=== PATIENT | male | born 1955 | race American Indian/Alaskan Native ===

== ENCOUNTER 2018-01-01 04:09 | Emergency (ER) | payer OTHER ==
[2018-01-01 05:53] LABS: Basophils # (Auto) 0.1 K/mm3 (0.0-0.1); Basophils % (Auto) 0.7 % (0.0-1.8); Eosinophils # (Auto) 0.2 K/mm3 (0.0-0.4); Eosinophils % (Auto) 1.7 % (0.0-4.3); Hematocrit 40.8 % (35.5-45.6); Hemoglobin 13.9 gm/dl (11.8-15.2); Lymphocytes # (Auto) 1.9 K/mm3 (1.2-5.4); Lymphocytes % (Auto) 19.8 % (13.4-35.0); Mean Corpuscular HGB Conc 34 % (32-34); Mean Corpuscular Hemoglobin 29 pg (28-32); Mean Corpuscular Volume 86 fl (84-94); Monocytes # (Auto) 0.8 K/mm3 (0.0-0.8); Monocytes % (Auto) 8.2 % (0.0-7.3); Red Blood Count 4.76 M/mm3 (3.65-5.03); Red Cell Distribution Width 13.2 % (13.2-15.2)
[2018-01-01 06:10] LABS: Platelet Count 140 K/mm3 (140-440)
[2018-01-01 06:12] LABS: Alanine Aminotransferase 9 units/L (7-56); Albumin 4.2 g/dL (3.9-5); BUN/Creatinine Ratio 20; Blood Urea Nitrogen 16 mg/dL (9-20); Calcium 9.1 mg/dL (8.4-10.2); Hemolysis Index 28
[2018-01-01 06:50] LABS: Bilirubin,Urine NEG (Negative); Blood,Urine NEG (Negative); Color,Urine Yellow (Yellow); Mucus,Urine FEW /HPF; Protein,Urine <15 mg/dL mg/dL (Negative); WBC,Urine < 1.0 /HPF (0.0-6.0)
[2018-01-01] MEDS ORDERED: MORPHINE IV ONE (07:47)
[2018-01-01] MEDS ORDERED: ZOFRAN IV ONE (07:47)
--- NOTE | 2018-01-01 12:01 | Cat Scan Report ---
CT ABDOMEN PELVIS WITH CONTRAST: HISTORY: Abdominal pain, previous surgery. COMPARISON: No relevant comparison. TECHNIQUE: Helical CT in 1.25mm intervals following IV contrast. Sagittal and coronal reconstructions. FINDINGS: Lung bases: Normal. Liver: Normal. Biliary system: Normal. Pancreas: Normal. Spleen: Normal. Kidneys/ureters/bladder: Normal. Adrenal glands: Normal. Aorta: Normal. Intestines: Within normal limits. No evidence for obstruction or focal inflammation. Appendix: Not confidently identified, correlate with surgical history. Pelvic viscera: Normal. Ascites: None. Adenopathy: None. Musculoskeletal: The bony structures are intact. Minimal lumbar spondylosis is noted. There is mild thickening of the lower right rectus abdominous muscle which may represent an intramuscular hemorrhage. No peripherally enhancing abscess is identified. Please correlate with the patient. IMPRESSION: No acute inflammatory process is identified in the abdomen or pelvis. Assumed appendectomy. Mild thickening of the lower right rectus abdominis muscle which could represent an intramuscular hemorrhage.
[2018-01-01 12:15] VITALS: BP 111/66
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
== END 2018-01-01 13:15 | disposition home or self-care (01) ==
LOC: ED 04:09
DX: R07.89 Other chest pain (principal); R10.9 Unspecified abdominal pain; I10 Essential (primary) hypertension; F17.200 Nicotine dependence, unspecified, uncomplicated
CPT/HCPCS: 36415; 74177; 80053; 81001; 83690; 84484; 85025; 93005; 93010; 96374; 96375; 99284; J2270; J2405; Q9967